=== PATIENT | male | born 1990 ===

== ENCOUNTER 2025-05-19 03:50 | Emergency (ER) | payer BC, SELFPAY ==
[2025-05-19] VITALS (24 sets, daily range): BP systolic 116–146; BP diastolic 60–91; PULSE 67–98; RESP 15–20; TEMP 36; O2SAT 92–97; BMI 43.9
--- OUTSIDE RECORDS SUMMARY | 2025-05-19 03:52 | XMS_ITS | Clinical Summary ---
Author Organization [facility] Address [address] [place] [id number] Care Team Providers Care It Security Consulting Director Name Role Phone No Ref-Primary, Physician Primary Care Provider Allergies No known active allergies Medications famotidine (PEPCID) 20 MG tablet Take 20 mg by mouth 04/03/2022 Active Social History Tobacco Use Types Packs/Day Years Used Date Smoking Tobacco: Never Smokeless Tobacco: Never Tobacco Cessation:Counseling Given: Not Answered Alcohol Use Standard Drinks/Week Comments Yes 0 (1 standard drink = 0.6 oz pur e alcohol) Adolescent Education Answer Date Record ed Getting School Help Needed Not on file 09/21 Sex and Gender Information Value Date Recorded Sex Assigned at Not on file Legal Sex Male 9:53 PM ANODIZER Gender Identity Not on file Sexual Orientation Not on file Last Filed Vital Signs Vital Sign Reading Time Taken Comments Blood Pressure 118/77 09/21/2023 2:36 PM ANODIZER Pulse 84 09/21/2023 2:36 PM ANODIZER Temperature 36.9 C (98.4 F) 09/21/2023 2:36 PM ANODIZER Respiratory Rate - - Oxygen Saturation 96% 09/21/2023 2:36 PM ANODIZER Inhaled Oxygen Concentration - - Weight 131.5 kg (290 lb) 09/21/2023 2:36 PM ANODIZER Height - - Body Mass Index - - Plan of Treatment Health Maintenance Due Date Last Done Comments ADVANCE CARE PLANNING 1991 ANNUAL REVIEW OF HM ORDERS 1991 YEARLY PREVENTIVE VISIT 1994 HIV SCREENING 2006 HEPATITIS C SCREENING 2009 HEPATITIS B VACCINE (1 of 3 - 19+ 3-dose series) 2010 DTAP/TDAP/TD VACCINE (1 - Tdap) 2016 COVID-19 VACCINE (1 - 2024-2 5 season) 2024 PHQ-2 (once per calendar year) 2024 INFLUENZA VACCINE (#1) 2025 ZOSTER VACCINE (1 of 2) 2041 HPV VACCINE (No Doses Required) Completed MENINGITIS VACCINE Aged Out No longer eligible based on patient's age to complete this topic PNEUMOCOCCAL VACCINE: PEDIAT RICS (0 to 5 YEARS) AND AT-RISK PATIENTS (6 to 49 YEARS) Aged Out No longer eligi ble based on patient's age to complete this topic Care Teams It Security Consulting Director Relationship Specialty Start Date End Date No Ref-Primary, Physician PCP - General 09/21/23
--- OUTSIDE RECORDS SUMMARY | 2025-05-19 03:52 | XMS_ITS | Clinical Summary ---
Author Organization [facility] Address [address] [place] [address] Care Team Providers Care Screening Representative Name Role Phone No Primary/Referring, Phy Primary Care Provider Unavailable Source Comments You are receiving this document as you are listed as the primary care provider,follow-up provider, or the patient has been referred to you for consultation.This is in compliance with the Medicare and[facility] EHR Incentive Program,which states Providers who transition their patient to another setting of careor provider of care or refers their patient to another provider of care shouldprovide summary care record for each transition of care or referral. [facility] Allergies No known active allergies Medications No known medications Active Problems Problem Noted Date Diagnosed Date Closed nondisplaced fracture of body of left sca pula 04/07/2016 Family History Medical History Relation Name Comments Glaucoma Negative Family History Macular Degeneration Negative Family History Retinal Detachment Negative Family History Social History Tobacco Use Types Packs/Day Years Used Date Smoking Tobacco: Former Cigarettes Smokeless Tobacco: Never Tobacco Cessation:Counseling Given: Not Answered Comments:Just a social smoker Alcohol Use Standard Drinks/Week Comments Yes 0 (1 standard drink = 0.6 oz pur e alcohol) PHQ-2 Answer Date Recorded PHQ-2 Score 0 09/19/2023 Sex and Gender Information Value Date Recorded Sex Assigned at Not on file Legal Sex Male 10:40 AM CDT Gender Identity Not on file Sexual Orientation Not on file Last Filed Vital Signs Vital Sign Reading Time Taken Comments Blood Pressure 126/78 09/19/2023 7:25 AM COLLAR SETTER Pulse 70 09/19/2023 7:25 AM COLLAR SETTER Temperature 36.2 C (97.1 F) 09/19/2023 7:25 AM COLLAR SETTER Respiratory Rate 18 03/23/2016 10:50 AM CDT Oxygen Saturation 97% 03/23/2016 11:45 AM CDT Inhaled Oxygen Concentration - - Weight 131 kg (288 lb 12.8 oz) 09/19/2023 7:25 A M COLLAR SETTER Height 170.3 cm (5' 7.05) 09/19/2023 7:25 AM CS T Body Mass Index 45.17 09/19/2023 7:25 AM COLLAR SETTER Plan of Treatment Health Maintenance Due Date Last Done Comments Hep C Screening (Preventive Services) 1991 HIV Screening (Preventive Services) 2007 Adult Preventive Visit 2009 DTaP/Tdap/Td Vaccine (1 - Tdap) 2010 HepB Vaccine (1) 2010 COVID-19 Vaccine ( - 2023-2 5 season) 2024 Influenza Vaccine (#1) 2025 Zoster/Shingles Vaccine (1 of 2) 2041 HPV Vaccine Aged Out No longer eligi ble based on patient's age to complete this topic HepA Vaccine Aged Out No longer eligi ble based on patient's age to complete this topic Hib Vaccine Aged Out No longer eligi ble based on patient's age to complete this topic IPV (Polio) Vaccine Aged Out No longe r eligible based on patient's age to complete this topic MCV4 Vaccine Aged Out No longer eligi ble based on patient's age to complete this topic Meningococcal B Vaccine Aged Out No l onger eligible based on patient's age to complete this topic Pneumococcal Vaccine Aged Out No long er eligible based on patient's age to complete this topic Insurance [facility] [place] [id number] [employer] Care Teams Screening Representative Relationship Specialty Start Date End Date No Primary/Referring, Phy PCP - General 03/23/16
--- OUTSIDE RECORDS SUMMARY | 2025-05-19 03:52 | XMS_ITS | Clinical Summary ---
Author Organization [facility] Address [address] [place] [id number] Care Team Providers Care Unit Clerk Name Role Phone Pcp, No Primary Care Provider Unavailabl e Social History Tobacco Use Types Packs/Day Years Used Date Smoking Tobacco: Never Assessed Sex and Gender Information Value Date Recorded Sex Assigned at Not on file Legal Sex Male 12:40 PM RESIDENTIAL DIRECTOR Gender Identity Not on file Sexual Orientation Not on file Plan of Treatment Not on file Care Teams Unit Clerk Relationship Specialty Start Date End Date Pcp, No . PCP - General 10/18/16
--- NOTE | 2025-05-19 04:03 | ED.GENADULT ---
HPI - General Adult General Chief complaint: Chest Pain Stated complaint: chest pain Time Seen by Provider: 05/19/25 04:03 History of Present Illness HPI narrative: patient has had chest pressure since , the pain seems to wrap around to the back, has been significantly worse today. denies known cardiac hx. reports some SOB and diaphoresis starting to day . reports more painful with deep inspiration, tried alkalizer at home without relief. 34-year-old man presenting to the emergency department with concern of mid abdominal and low chest pain. Has had discomfort now for almost 4 days. Increased today. He has difficulty describing it. Escalated on the way over here did stop vomit. Is nauseated but does not feel like it is terrible at the moment. Did try bunch of Robina-Waccabuc did not help. Worse to sit forward. Entire mid abdomen and chest seems to be irritated. And then suddenly like a boom when up through the right side of his body at some point. Similar pain about 4 years ago with negative evaluation. Unknown whether not was evaluated for gallbladder. Related Data Home Medications ?Medication ?Instructions ?Recorded ?Confirmed tadalafil 05/19/25 Allergies Allergy/AdvReac Type Severity Reaction Status Date / Time No Known Drug Allergies Allergy Verified 05/19/25 03:59 Review of Systems Status of ROS: Reports: 6 or more systems reviewed and unremarkable except as noted in History and below [facility] Social History Smoking Status: Former smoker How often do you have a drink containing alcohol: monthly or less AUDIT-C Alcohol total score: 1 Non-prescribed substance use: denies use Exam Narrative: Exam Narrative: Pleasant. NAD. Breathing easily. Skin is a little clammy over the upper chest. Abdomen is obese. Sore to palpation in the bilateral mid back but also specially in the right upper quadrant. No peritoneal signs. Present bowel sounds. Extremities are well perfused. He is without edema. Heart in regular rate and rhythm. Distant. Lungs are clear. Const: Vital Signs, click to edit/add: Vital Signs - 24 hr 05/19/25 03:56 05/19/25 04:02 05/19/25 04:05 Temperature 96.8 F L Pulse Rate 79 98 Pulse Rate [Pulse Oximeter] 83 Respiratory Rate 20 20 18 Blood Pressure 146/76 H Blood Pressure [Ri ght Upper Arm] 143/91 H Pulse Oximetry 97 97 97 Oxygen Delivery Me thod Room Air 05/19/25 04:15 05/19/25 04:16 05/19/25 04:30 Temperature Pulse Rate 77 81 80 Pulse Rate [Pulse Oximeter] Respiratory Rate 18 Blood Pressure 119/67 Blood Pressure [Ri ght Upper Arm] Pulse Oximetry 94 92 93 Oxygen Delivery Me thod 05/19/25 04:31 05/19/25 04:32 05/19/25 04:45 Temperature Pulse Rate 80 83 83 Pulse Rate [Pulse Oximeter] Respiratory Rate 16 16 16 Blood Pressure 120/86 Blood Pressure [Ri ght Upper Arm] Pulse Oximetry 93 93 95 Oxygen Delivery Me thod 05/19/25 04:46 05/19/25 05:00 05/19/25 05:01 Temperature Pulse Rate 79 75 76 Pulse Rate [Pulse Oximeter] Respiratory Rate 16 18 19 Blood Pressure 122/60 120/81 Blood Pressure [Ri ght Upper Arm] Pulse Oximetry 94 95 95 Oxygen Delivery Me thod 05/19/25 05:02 05/19/25 05:15 05/19/25 05:16 Temperature Pulse Rate 87 74 74 Pulse Rate [Pulse Oximeter] Respiratory Rate 15 17 18 Blood Pressure 129/89 Blood Pressure [Ri ght Upper Arm] Pulse Oximetry 95 94 94 Oxygen Delivery Me thod 05/19/25 05:30 05/19/25 05:32 05/19/25 05:45 Temperature Pulse Rate 74 79 70 Pulse Rate [Pulse Oximeter] Respiratory Rate 18 19 18 Blood Pressure 116/86 Blood Pressure [Ri ght Upper Arm] Pulse Oximetry 95 96 96 Oxygen Delivery Me thod 05/19/25 06:00 05/19/25 06:01 05/19/25 06:15 Temperature Pulse Rate 79 79 76 Pulse Rate [Pulse Oximeter] Respiratory Rate 16 16 16 Blood Pressure 124/81 Blood Pressure [Ri ght Upper Arm] Pulse Oximetry 97 95 94 Oxygen Delivery Me thod 05/19/25 06:30 05/19/25 06:31 05/19/25 06:45 Temperature Pulse Rate 67 85 71 Pulse Rate [Pulse Oximeter] Respiratory Rate 16 15 Blood Pressure 122/87 Blood Pressure [Ri ght Upper Arm] Pulse Oximetry 97 94 97 Oxygen Delivery Me thod Documenting provider has reviewed patient's vital signs: yes Course Vital Signs Vital signs: Initial Vital Signs Temperature 96.8 F L 05/19/25 03:56 Temperature Source Temporal Artery Scan 05/19/25 03:56 Pulse Rate 83 05/19/25 03:56 Respiratory Rate 20 05/19/25 03:56 Blood Pressure 143/91 H 05/19/25 03:56 Blood Pressure Mean 108 H 05/19/25 03:56 Blood Pressure Position Semi-Fowlers 05/19/25 03:56 Pulse Oximetry 97 05/19/25 03:56 Oxygen Delivery Method Room Air 05/19/25 03:56 Vital Signs Temperature 96.8 F L 05/19/25 03:56 Pulse Rate 83 05/19/25 03:56 Respiratory Rate 20 05/19/25 03:56 Blood Pressure 143/91 H 05/19/25 03:56 Pulse Oximetry 97 05/19/25 03:56 Oxygen Delivery Method Room Air 05/19/25 03:56 Temperature 96.8 F L 05/19/25 03:56 Pulse Rate 71 05/19/25 06:45 Respiratory Rate 15 05/19/25 06:31 Blood Pressure 122/87 05/19/25 06:31 Pulse Oximetry 97 05/19/25 06:45 Oxygen Delivery Method Room Air 05/19/25 03:56 Medications Administered Medications: Discontinued Medications Generic Name Dose Route Start Last Admin Trade Name Freq PRN Reason Stop Dose Admin Lidocaine/Aluminum/Magnesium/Simeth 30 ml 05/19/25 05:38 05/19/25 05:59 Gi Cocktail (Visc Lido/Antacid) 30 Ml PO 05/19/25 05:39 30 ml ONCE ONE Administration Medical Decision Making [facility] Narrative Medical decision making narrative: Would have concerns of gallbladder disease here possibly a gastritis. Heartburn or GERD? Possible ischemic cardiovascular event but less likely. Initial EKG independently reviewed by me shows normal sinus rhythm with incomplete right bundle. Rate of 76 without acute ischemic changes apparent. Initiate IV. Appropriate labs. Would anticipate limited ultrasound of the abdomen when technologists arrive. Mild elevation of white count. Normal transaminases and lipase. Did note some improvement after GI cocktail. Ultimately able to sleep here in the emergency department. Radiology over-read of ultrasound as below Indication: Right upper quadrant abdomen pain TECHNIQUE: Ultrasound abdomen limited. Sonographic images of the right upper quadrant were obtained using jones-scale and color Doppler images. Comparison: None FINDINGS: Liver: Diffusely increased in echogenicity with craniocaudal diameter of 19.1 centimeters. No masses. No intrahepatic biliary dilatation. Gallbladder: Cholelithiasis with some echogenic nonshadowing structures, probably sludge balls. These show no internal vascularity on color Doppler imaging. Polyps may be difficult to entirely exclude. No gallbladder wall thickening or pericholecystic fluid. Common bile duct: 5 mm. Pancreas: Obscured by bowel gas. Right kidney measures 12.9 centimeters without hydronephrosis. Proximal abdominal aorta is normal in caliber. Impression: 1. Cholelithiasis with some additional echogenic structures within the gallbladder which likely represent tumefactive sludge although interposed polyps may be difficult to entirely exclude. No gallbladder wall thickening or pericholecystic fluid although the web interface developer reports a positive sonographic Cook`s sign. Normal diameter common duct. 2. Hepatomegaly with moderate hepatic steatosis. 3. Pancreas obscured by bowel gas. Dictated by Danyel Pascal MD @ 05/19/2025 7:31:05 AM Is noted overall improved. I do think that these findings in gallbladder likely explanation for the recurrent or persistent pain that he has been experiencing. Discussed this case with General surgery and anticipating outpatient follow-up. Medical Records Medical records reviewed: Yes I reviewed the patient's medical records Lab Data Lab results reviewed: Yes I reviewed the patient's lab results Labs: Lab Results 05/19/25 05/19/25 Range/Units 04:00 05:25 WBC 11.49 H (4.50-11.00) K/uL RBC 5.79 (4.30-5.90) m/uL Hgb 16.4 (13.5-17.5) gm/dL Hct 49.9 (37.0-53.0) % MCV 86 (80-100) fL MCH 28 (26-34) pg MCHC 33 (32-36) gm/dL RDW Coeff of Haylie 13.6 (11.5-15.5) % Plt Count 343 (140-440) K/uL Neut % (Auto) 66.6 (42.0-72.0) % Lymph % (Auto) 25.4 (20-44) % Moore % (Auto) 5.6 (0.0-11.0) % Eos % (Auto) 1.2 (0.0-7.0) % Baso % (Auto) 0.5 (0.0-3.0) % Neut # (Auto) 7.70 H (1.7-7.0) K/uL Lymph # (Auto) 2.90 (0.90-2.90) K/uL Moore # (Auto) 0.60 (0.00-0.90) K/UL Eos # (Auto) 0.10 (0.00-0.50) K/uL Baso # (Auto) 0.10 (0.00-0.30) K/uL Abs Immat Gran (auto) 0.10 (0.00-0.30) K/uL Imm/Tot Granulo (auto) 0.7 % D-Dimer Quant (PE/DVT) 0.07 (0.00-0.50) ug/ml Sodium 138 (135-149) mmol/L Potassium 3.7 (3.6-5.1) mmol/L Chloride 104 (96-114) mmol/L Carbon Dioxide 26 (20-32) mmol/L Anion Gap 8 (7-15) mEq/L BUN 11 (5-24) mg/dL Creatinine 0.8 (0.5-1.5) mg/dL Estimated Creat Clear 122.79 Estimated GFR 120 ml/min Glucose 125 H (60-115) mg/dL Calcium 9.1 (8.4-10.6) mg/dL Total Bilirubin 0.5 (0.1-1.5) mg/dL Direct Bilirubin 0.1 (0.0-0.5) mg/dL AST 30 (12-35) U/L ALT 30 (4-50) U/L Alkaline Phosphatase 75 (40-150) U/L Troponin I < 0.01 (0.01-0.04) ng/mL C-Reactive Protein 1.0 (0.5-1.0) mg/dL Total Protein 7.7 (6.0-8.3) g/dL Albumin 4.4 (3.3-5.0) g/dL Lipase 44 (23-300) U/L Lab Acknowledgement Test Added Discharge Plan Discharge Clinical Impression: Cholelithiasis, Abdominal pain Patient Disposition: Home, Self-Care Condition: Improved Additional Instructions: Stay well-hydrated. Please follow a low-fat diet. I am prescribing some opiate pain pills for you if needed. Percocet for pain and Zofran for nausea from [facility]. If pain though persisting 2 hours after taking pain pills or you are experiencing recurrent vomiting or fever, please return. Appointment with general surgery is scheduled at the [facility] on 05/22 with a 2:15pm appointment time. If you have any questions, please call [phone]. Prescriptions: No Action tadalafil tablet Patient Comments: sarah Follow Up/Referrals: Provider,Not a Local [Primary Care Provider, Family Practice] Stand Alone Forms: [facility] Info Instructions
[2025-05-19 04:22] LABS: Hematocrit 49.9 % (37.0-53.0); Hemoglobin* 16.4 gm/dL (13.5-17.5); Immature Granulocytes Pct Auto 0.7 %; Mean Corpuscular HGB Conc 33 gm/dL (32-36); Mean Corpuscular Hemoglobin 28 pg (26-34); Mean Corpuscular Volume 86 fL (80-100); RDW Coefficient of Variation % 13.6 % (11.5-15.5); Red Blood Count 5.79 m/uL (4.30-5.90); White Blood Count* 11.49 K/uL (4.50-11.00)
[2025-05-19 04:24] LABS: Immature Granulocytes Abs Auto 0.10 K/uL (0.00-0.30); Lymphocytes Absolute Auto 2.90 K/uL (0.90-2.90); Slide Review Reflex No
[2025-05-19 04:27] LABS: Albumin* 4.4 g/dL (3.3-5.0); Chloride* 104 mmol/L (96-114); Potassium* 3.7 mmol/L (3.6-5.1); Sodium* 138 mmol/L (135-149)
[2025-05-19 04:29] LABS: Blood Urea Nitrogen* 11 mg/dL (5-24); Creatinine* 0.8 mg/dL (0.5-1.5); Est. Creatinine Clearance* 122.79; Estimated Glomerular Filt Rate 120 ml/min
[2025-05-19 04:30] LABS: Alanine Aminotransferase* 30 U/L (4-50); Alkaline Phosphatase* 75 U/L (40-150); Anion Gap 8 mEq/L (7-15); Aspartate Amino Transferase* 30 U/L (12-35); Bilirubin Direct* 0.1 mg/dL (0.0-0.5); Bilirubin Total* 0.5 mg/dL (0.1-1.5); Calcium* 9.1 mg/dL (8.4-10.6); Carbon Dioxide* 26 mmol/L (20-32); Glucose* 125 mg/dL (60-115); Total Protein* 7.7 g/dL (6.0-8.3)
[2025-05-19 04:42] LABS: D Dimer Quantitative* 0.07 ug/ml (0.00-0.50)
--- NOTE | 2025-05-19 05:25 | CRLHL7_ITS ---
For Patients: As a result of the Century Cures Act, medical imaging exams and procedure reports are released immediately into your electronic medical record. You may view this report before your referring provider. If you have questions, please contact your health care provider. Indication: Right upper quadrant abdomen pain TECHNIQUE: Ultrasound abdomen limited. Sonographic images of the right upper quadrant were obtained using jones-scale and color Doppler images. Comparison: None FINDINGS: Liver: Diffusely increased in echogenicity with craniocaudal diameter of 19.1 centimeters. No masses. No intrahepatic biliary dilatation. Gallbladder: Cholelithiasis with some echogenic nonshadowing structures, probably sludge balls. These show no internal vascularity on color Doppler imaging. Polyps may be difficult to entirely exclude. No gallbladder wall thickening or pericholecystic fluid. Common bile duct: 5 mm. Pancreas: Obscured by bowel gas. Right kidney measures 12.9 centimeters without hydronephrosis. Proximal abdominal aorta is normal in caliber. Impression: 1. Cholelithiasis with some additional echogenic structures within the gallbladder which likely represent tumefactive sludge although interposed polyps may be difficult to entirely exclude. No gallbladder wall thickening or pericholecystic fluid although the sign out clerk reports a positive sonographic Cook`s sign. Normal diameter common duct. 2. Hepatomegaly with moderate hepatic steatosis. 3. Pancreas obscured by bowel gas. Dictated by Danyel Pascal MD @ 05/19/2025 7:31:05 AM (Electronically Signed)
[2025-05-19] MEDS: GI COCKTAIL (VISC LIDO/ANTACID) 30 ML PO (05:59)
== END 2025-05-19 09:04 | disposition home or self-care (01) ==
PROVIDERS: Emergency Provider Family Medicine
DX: K80.20 Calculus of gallbladder without cholecystitis without obstruction (principal); R10.9 Unspecified abdominal pain; R07.9 Chest pain, unspecified; R11.10 Vomiting, unspecified; I45.10 Unspecified right bundle-branch block; Z87.891 Personal history of nicotine dependence
CPT/HCPCS: 36415; 76705; 80048; 80076; 83690; 84484; 85025; 85379; 86140; 99283; 99284; A9270

== ENCOUNTER 2025-05-23 11:24 | Day surgery (SDC) | payer BC, SELFPAY ==
[2025-05-23] VITALS (19 sets, daily range): BP systolic 113–156; BP diastolic 73–121; PULSE 79–134; RESP 14–22; TEMP 36–37.1; O2SAT 89–96
[2025-05-23] MEDS: SODIUM CHLORIDE 0.9 % (FLUSH) 10 ML SYRINGE IVF (12:00)
[2025-05-23] MEDS: LACTATED RINGERS 1000 ML 1,000 ML 100 ML IV (12:05)
[2025-05-23] MEDS: PIPERACILLIN/TAZOBACTAM 3.375 GM INJ IVPB (12:23)
[2025-05-23] MEDS: BUPIVACAINE 0.5% 30 ML 20 ML INJECTION (12:33)
--- NOTE | 2025-05-23 12:45 | SUR.OPER ---
PATIENT QUESTIONS ANSWERED SATISFACTORILY PREOPERATIVELY. PATIENT BROUGHT TO OR #2 PER CART. Patient positioned supine on OR #2 bed. The perioperative team supported arms bilaterally on arm boards. Final approval of positioning by surgeon.
--- NOTE | 2025-05-23 14:58 | SUR.OPER ---
family updated at this time
--- NOTE | 2025-05-23 15:53 | PM.GSPRC ---
Operative Note Date of procedure: 05/23/25 Pre-op diagnosis: Acute cholecystitis Post-op diagnosis: Same Type of Procedure: Laparoscopic cholecystectomy, modifier 22 applied due to morbid obesity and rare congenital anomaly of left-sided gallbladder Indications: Patient is a 34-year-old male who presented to clinic with persistent abdominal pain concerning for acute cholecystitis. Risks and benefits of operative intervention were discussed at length with the patient. Risks included but was not limited to: Bleeding, infection, risk of damage to surrounding structures, possible need for additional procedures, [possible need to convert to an open operation] and postoperative complications such as pneumonia, pulmonary emboli or TN. All questions and concerns were addressed with the patient agreeing to proceed. Procedure Description: After discussing the risks and benefits of the procedure, the patient signed informed consent.? The operative site was marked and the patient was brought to the operating room and placed on the operating table in supine position.? Care was taken to pad the patient's pressure points.?? The patient was then intubated by anesthesia.?? The operative site was then prepped and draped in the usual sterile fashion.? A time-out was then performed. Entrance to the abdomen was gained via a 5 mm Visiport in the left upper quadrant. The abdomen was insufflated and briefly surveyed for signs of injury. There was none. The fundus of the gallbladder was identified left to the falciform ligament and inflamed. Due to this abnormal positioning an 11 mm supra umbilical port was placed as well as a 5 mm port in the left upper quadrant and a 2nd 5 mm port right mid abdomen. Patient was then placed in reverse Trendelenburg position with the right side up. A laparoscopic needle was used to decompress the gallbladder, with removal of 120 mL clear fluid consistent with hydrops. The gallbladder fundus was grasped and retracted cephalad. Visualization during the procedure was difficult secondary to the abnormal anatomy of the gallbladder lying to the left of the falciform. The gallbladder itself was also very edematous and inflamed. I began by grasping the infundibulum and retracting outward the gallbladder. A combination of hook cautery and blunt dissection was used for careful dissection. A structure was identified, which looked like the cystic duct, but was difficult to discern due to the surrounding vasculature. ICG was instilled by Anesthesia and I waited a period of 50 minutes before viewing the biliary system. The common bile duct was identified, as well as the cystic duct, which was consistent with the structure I had identified. An artery wrapped from the gallbladder tracing posterior of the cystic duct, causing distortion. Two clips were applied proximal and 1 distal on this artery before it was transected. My partner Dr. Bermudez came in for an intraoperative consultation. At her suggestion I took down the gallbladder from skilled nursing up the gallbladder fossa and towards the infundibulum in a top-down approach. A small arterial vessel on the edge of the liver bed was controlled with 2- 5 mm clips. Dissection was tedious, but continued until only 2 structures could be seen clearly entering the gallbladder without any other intervening structures. Once the critical view was achieved the cystic duct and artery were each clipped with 2 clips proximally and 1 clip distally and transected with the scissors. A small branch of the cystic artery was controlled with a single 5 mm clip before being divided by the cautery. The gallbladder was then taken off of the liver bed and removed from the abdomen using an Endo-Catch bag. The 11 mm port site was used as an extraction point. The fascia was extended superiorly to allow for removal of a large, inflamed gallbladder. The port was then closed with several interrupted 0 Vicryl stitches. The abdomen was insufflated and a second-look of the gallbladder bed was surveyed for hemostasis, which was excellent. A small amount of bile which had spilled was suctioned from the abdomen. The ports were then removed under direct vision. The skin was closed with absorbable subcuticular suture. Instrument sponge and needle counts were correct at the end of the case. The patient was then woken and transferred to the PACU in stable condition. Findings: Hydrops of the gallbladder, significant inflammation and abnormal anatomy with gallbladder to the left of the falciform ligament. Anesthesia: GETA Surgeon: Leona Mancera MD Estimated blood loss (mL): 25 Specimen: Gallbladder Condition: stable Disposition: PACU
--- NOTE | 2025-05-23 16:03 | W.PM.H&PU ---
History & Physical Update History & Physical Update H&P Reviewed and patient assessed: No changes noted
--- NOTE | 2025-05-23 16:22 | P.ANES_ITS ---
Anesthesia Charges Start Date/Time Anesthesia Start Date: 05/23/25 Anesthesia Start Time: 12:08 Stop Date/Time Anesthesia Stop Date: 05/23/25 Anesthesia Stop Time: 16:06 Coding CPT Codes CPT Codes: ANESTH SURG UPPER ABDOMEN - 70913 ([id number]) P3 - PATIENT W/SEVERE SYS DISEASE, QZ - BOTANY LABORATORY ASSISTANT SVC W/O SET UP MECHANIC BY
--- NOTE | 2025-05-23 16:22 | W.ANESCHARGE ---
Anesthesia Charges Start Date/Time Anesthesia Start Date: 05/23/25 Anesthesia Start Time: 12:08 Stop Date/Time Anesthesia Stop Date: 05/23/25 Anesthesia Stop Time: 16:06 Coding CPT Codes CPT Codes: ANESTH SURG UPPER ABDOMEN - 00785 ([id number]) P3 - PATIENT W/SEVERE SYS DISEASE, QZ - EYELET PUNCH OPERATOR SVC W/O HERPETOLOGY TEACHER BY
[2025-05-23] MEDS: PIPERACILLIN/TAZOBACTAM 3.375 GM in 0.9 % SODIUM CHLORIDE Mini-bag 100 ML IVPB (18:39)
--- NOTE | 2025-05-23 19:04 | PC.NURSE ---
End of shift note Patient is very pleasant and cooperative throughout shift. Patient has 4 incisions covered with steri strips, scant blood discharge on each of them. He has been rating his pain at 5 since arrival, but states that is a tolerable level for him. Patient is hesitant to take any pain medication, especially narcotics. Other options were offered and declined for now. Lung sounds are clear bilaterally. Bowel sounds are hypo active in all quadrants. Patient reported a feeling like he had to poop and asked to go to the restroom.He became dizzy and reported that his legs feel like they are asleep. He is able to move them without a problem, and pedal pulses are regular and strong. Utilized bedpan, no bowel movement or voiding happened. His diet has been advanced to clear liquids. Reports no nausea.
[2025-05-23] MEDS: HYDROCODONE-ACETAMIN 5-325 MG 1 TAB PO (22:47)
[2025-05-24] MEDS: PIPERACILLIN/TAZOBACTAM 3.375 GM in 0.9 % SODIUM CHLORIDE Mini-bag 100 ML IVPB ×2 (00:33→06:26)
[2025-05-24] MEDS: MELATONIN 3 MG TABLET PO (00:53)
[2025-05-24 03:19] VITALS: BP 106/73; PULSE 78; RESP 14; TEMP 36.7; O2SAT 92
--- NOTE | 2025-05-24 06:51 | PC.NURSE ---
Arrived to find the patient sitting up in bed in a semi-fowlers position, alert and oriented and in good spirits. Questioning found that the patient was in pain at around 5/10, the lower right abdominal area in an oval shape parallel to the ground, covering that lower right quadrant. His abdominal incisions show previous red, ooze discharge under site tape. No further discharge overnight. The whole abdomen felt somewhat taught. The small pressure inward to the abdomen causes an increase in tender pain. Tachycardic and hypertensive.? It was reported to us by the patient that their previous attempt to stand caused a numbness in their right leg as well as a feeling of just not being quite right. We made a second attempt after my assessment and the patient had no trouble with moving independently. CMS intact. The previous symptoms did not represent themselves. The patient was educated on the need to move slowly over the next few days to help prevent dizziness when standing. His appetite has been notable low. He says he doesn?t want to feel pain after eating. A trial of Jello was successful and so a tray of mashed potatoes, toast, yogurt, and peaches was brought to the patient to assess his toleration of regular food. Tolerated well. He is drinking water adequately. Taught on value of incentive spirometer use. Pain is more severe upon standing but then subsides. No further developments overnight. Pain still present at the time before transfer of care.?
[2025-05-24 07:00] VITALS: BP 110/81; PULSE 76; RESP 18; TEMP 36.5; O2SAT 94
[2025-05-24] MEDS: HYDROCODONE-ACETAMIN 5-325 MG 1 TAB PO (08:58)
[2025-05-24 11:00] VITALS: BP 125/80; PULSE 81; RESP 18; TEMP 36.6; O2SAT 94
[2025-05-24 13:00] VITALS: BP 133/99; PULSE 81; RESP 20; TEMP 36.6; O2SAT 95
--- NOTE | 2025-05-24 13:36 | PC.NURSE ---
Discharge Note (260)? ? Patient has been very pleasant and cooperative throughout his stay. He was admitted for observation after a Lap Cholecystectomy. Incision sites are dry and intact. Steri-strips have been replaced on all 4 sites. Abdominal sounds are normoactive in all four quadrants. He reports flatus, but no BM as of this morning. Voiding is normal as per patient statement. Activity has been advanced as tolerated. Regular diet. Patient has been educated on condition, diet, activity, S&S of infection, and medications. Lung sounds are clear bilaterally. Patient has been discharged at 13:30. ?
== END 2025-05-24 13:30 | disposition home or self-care (01) ==
LOC: OR 11:26 → MEDSURG 16:54
PROVIDERS: Visit Provider Surgery
PROC: 0FT44ZZ Resection of Gallbladder, Percutaneous Endoscopic Approach (ICD-10-PCS; CPT 47562; principal; 2025-05-23 13:00)
DX: K80.12 Calculus of gallbladder with acute and chronic cholecystitis without obstruction (principal); K82.1 Hydrops of gallbladder
CPT/HCPCS: 47562; 00790; 88304; A9270; J0330; J0665; J1100; J1171; J1885; J2250; J2405; J2543; J2704; J2710; J3010; J3490; J7120